=== PATIENT | male | born 1965 | race Caucasian/White ===

== ENCOUNTER 2020-11-08 01:52 | Emergency (ER) | payer BC ==
[2020-11-08 02:33] LABS: RED BLOOD COUNT 4.85 M/UL (4.20-5.50); WHITE BLOOD COUNT 12.3 K/UL (4.5-11.0)
[2020-11-08] MEDS ORDERED: ZOFRAN ODT 4 MG4 MG SL (04:04)
[2020-11-08] MEDS ORDERED: PERCOCET 5-3251 EACH PO (04:05)
== END 2020-11-08 07:34 | disposition home or self-care (01) ==
LOC: ER1 01:52
PROVIDERS: Physician Assistant
DX: N13.2 Hydronephrosis with renal and ureteral calculous obstruction (principal); I10 Essential (primary) hypertension; Z87.442 Personal history of urinary calculi; Z79.899 Other long term (current) drug therapy
CPT/HCPCS: 80053; 81001; 85025; 96374; 96375; 96376; 99284; J1885; J2270; J2405; J7030

== ENCOUNTER → 2021-12-07 | Outpatient (CLI) | payer BC ==
[~2021-12-07] MED LIST: PERCOCET 5-3251 EACH PO; ZOFRAN ODT 4 MG4 MG SL
[2021-12-07 16:46] LABS: HEMOGLOBIN 15.3 gm/dl (14.0-17.5); RED BLOOD COUNT 5.05 M/UL (4.20-5.50); WHITE BLOOD COUNT 9.8 K/UL (4.5-11.0)
== END ==
LOC: LAB 16:12
PROVIDERS: Internal Medicine Nephrology
DX: N17.9 Acute kidney failure, unspecified (principal)
CPT/HCPCS: 36415; 80053; 82570; 83970; 84100; 84156; 84550; 85027; 89050

== ENCOUNTER → 2021-12-07 | Outpatient (CLI) | payer BC | LOC: EXRD 15:32 | DX: N17.9 Acute kidney failure, unspecified (principal) | CPT/HCPCS: 76775 ==